=== PATIENT | male | born 1995 | race Hispanic/Latino ===

== ENCOUNTER 2022-08-18 21:12 | Emergency (ER) | payer OTHER ==
[~2022-08-18] VITALS: Ht 175.3 cm; Wt 81.6 kg
== END 2022-08-18 21:32 | disposition home or self-care (01) ==
LOC: EDH 21:12
DX: Z01.83 Encounter for blood typing (principal); Z53.21 Procedure and treatment not carried out due to patient leaving prior to being seen by health care provider
CPT/HCPCS: 99281